=== PATIENT | male | born 1975 | race Caucasian/White ===

== ENCOUNTER → 2016-11-28 | Outpatient (CLI) | payer OTHER ==
[~2016-11-28] MED LIST: GLUCOPHAGE500 MG PO; HYDROCODON-ACE1 EAC7 PO; NORCO 5/3251 TABLET PO; PRAVACHOL10 MG PO; PREVACID30 MG PO; PRINIVIL10 MG PO; STOOL SOFTENER250 MG PO
== END | disposition home or self-care (01) ==
LOC: RAD 09:00
DX: M47.896 Other spondylosis, lumbar region (principal); R10.31 Right lower quadrant pain
CPT/HCPCS: 74177

== ENCOUNTER → 2016-12-15 | Outpatient (CLI) | payer OTHER | END | disposition home or self-care (01) | LOC: CDC 09:15 | DX: Z01.810 Encounter for preprocedural cardiovascular examination (principal); K40.90 Unilateral inguinal hernia, without obstruction or gangrene, not specified as recurrent | CPT/HCPCS: 93000 ==